=== PATIENT | male | born 1955 | race Caucasian/White ===

== ENCOUNTER 2019-12-02 08:20 | Emergency (ER) | payer BC, OTHER ==
[2019-12-02 17:21] LABS: SARS-CoV-2 MS2 Positive; SARS-CoV-2 N Gene Negative; SARS-CoV-2 S Gene Negative; SARS-CoV-2 orf1ab Negative
== END 2019-12-02 09:25 | disposition home or self-care (01) ==
LOC: ERS 08:20
DX: B34.9 Viral infection, unspecified (principal); Z20.828 Contact with and (suspected) exposure to other viral communicable diseases
CPT/HCPCS: 87635; 87804; 99283; U0003

== ENCOUNTER 2020-02-22 07:35 | Outpatient (CLI) | payer MEDICARE ==
--- NOTE | 2020-02-22 08:26 | ULT ---
ABDOMINAL ULTRASOUND HISTORY: Acute pancreatitis. FINDINGS: Liver: Mild increased echogenicity suggesting mild fatty infiltration. Gallbladder: No gallbladder calculi are visualized. There is no gallbladder wall thickening or perich olecystic fluid. Common duct: Common duct is normal in caliber measuring 0.3 cm in diameter. Pancreas: The limited visualized pancreas demonstrates a normal sonographic appearance. The tail and portion of the head of the pancreas are obscured by shadowing from bowel gas. No pancreatic or peripancreatic fluid collection is evident involving the visualized portions of the pancreas. IVC: Limited visualized IVC has a normal sonographic appearance. Aorta: Mild atherosclerotic plaque, the visualized normal aorta is normal in caliber. Portion of the mid abdominal aorta is obscured from shadowing by bowel gas. Spleen: Within normal limits. Kidneys: The right kidney demonstrates a normal sonographic appearance and measures 10 cm in length. The left kidney measures 11.2 cm in length. There is a anechoic structure seen in the inferior pole left kidney which is in the region of the renal sinus fat and may represent a parapelvic renal cyst m easuring 1.7 cm. IMPRESSION: 1. Mild fatty infiltration of the liver. 2. No gallbladder calculus is seen, and the common duct is normal in caliber. 3. The limited visualized portions of the pancreas demonstrate a normal sonographic appearance. 4. Inferior pole left renal cyst which may represent a parapelvic renal cyst.
== END 2020-02-22 07:36 | disposition home or self-care (01) ==
LOC: SCSULT 07:35
PROVIDERS: ATTEND Internal Medicine
DX: K85.90 Acute pancreatitis without necrosis or infection, unspecified (principal); K76.0 Fatty (change of) liver, not elsewhere classified; N28.1 Cyst of kidney, acquired
CPT/HCPCS: 93975

== ENCOUNTER 2020-07-10 10:47 | Outpatient (CLI) | payer MEDICARE ==
--- NOTE | 2020-07-10 11:17 | ULT ---
Sonogram abdomen complete HISTORY: Abnormal liver function tests. Renal mass. COMPARISON: 02/22/2020. FINDINGS: Multiple small echogenic foci with posterior shadowing are now present within the dependent portion of the gallbladder lumen. There is no gallbladder wall thickening or pericholecystic fluid. Common duct is 0.3 cm. Liver is diffusely echogenic without focal mass or intrahepatic biliary dilatation. A lobular parapelvic cyst at the midportion left kidney is now seen at 1.9 x 1.9 cm greatest diameter s. No hydronephrosis. The spleen, right kidney, and visualized portions of abdominal aorta, IVC, and pancreas are within no rmal limits. IMPRESSION : Cholelithiasis. No evidence of biliary obstruction. Hepato-steatosis. Left renal cyst.
== END 2020-07-10 10:48 | disposition home or self-care (01) ==
LOC: BICULT 10:47
PROVIDERS: ATTEND Internal Medicine
DX: K76.0 Fatty (change of) liver, not elsewhere classified (principal); N28.1 Cyst of kidney, acquired; K80.20 Calculus of gallbladder without cholecystitis without obstruction
CPT/HCPCS: 93975

== ENCOUNTER 2022-01-14 09:08 | Outpatient (CLI) | payer MEDICARE | END 2022-01-14 09:09 | disposition home or self-care (01) | LOC: BICULT 09:08 | PROVIDERS: ATTEND Physician Assistant Medical | DX: K80.20 Calculus of gallbladder without cholecystitis without obstruction (principal); K76.0 Fatty (change of) liver, not elsewhere classified | CPT/HCPCS: 76705 ==

== ENCOUNTER 2022-01-16 14:00 | Outpatient (CLI) | payer MEDICARE | END 2022-01-16 14:01 | disposition home or self-care (01) | LOC: LABBT 14:00 | PROVIDERS: ATTEND Internal Medicine Gastroenterology | DX: Z20.822 Contact with and (suspected) exposure to COVID-19 (principal) | CPT/HCPCS: 87811 ==

== ENCOUNTER 2022-01-21 10:24 | Day surgery (SDC) | payer MEDICARE ==
[2022-01-16 10:52] VITALS: BMI 25.1
[2022-01-21] MEDS ORDERED: Iopamidol 30 ML ONE (11:23)
[2022-01-21] MEDS ORDERED: Indomethacin 50 MG SUPP ONE (11:24)
[2022-01-21] MEDS ORDERED: fentaNYL Citrate/PF 100 MCG/2 ML SYRINGE ONE (11:55)
[2022-01-21] MEDS ORDERED: cefTRIAXone\\ROCEPHIN 1 GM VIAL ONE (12:13)
[2022-01-21] MEDS ORDERED: Sodium Chloride 0.9% 100 ML ONE (12:13)
[2022-01-21] MEDS ORDERED: Lidocaine 1% PF 5 ML VIAL ONE (12:16)
[2022-01-21] MEDS ORDERED: Dexamethasone 20 MG/5 ML VIAL ONE (12:16)
[2022-01-21] MEDS ORDERED: Ondansetron PF 4 MG/2 ML Vial ONE (12:16)
[2022-01-21] MEDS ORDERED: Succinylcholine 200 MG/10 ml SYRINGE FS ONE (12:16)
[2022-01-21] MEDS ORDERED: PROPOFOL 200 MG/20 ML VIAL ONE (12:16)
== END 2022-01-21 14:35 | disposition home or self-care (01) ==
LOC: SDC 10:24
PROVIDERS: ATTEND Internal Medicine Gastroenterology
PROC: 0DJ08ZZ Inspection of Upper Intestinal Tract, Via Natural or Artificial Opening Endoscopic (ICD-10-PCS; principal; 2022-01-21)
DX: K83.8 Other specified diseases of biliary tract (principal); K80.20 Calculus of gallbladder without cholecystitis without obstruction; Z79.899 Other long term (current) drug therapy
CPT/HCPCS: 74330; 76000; 93005; 93010; J0696; J1100; J2405; J2704; J3490; Q9967

== ENCOUNTER 2022-04-23 09:59 | Day surgery (SDC) | payer MEDICARE ==
[2022-04-22 15:29] VITALS: BMI 25.8
[2022-04-23] MEDS ORDERED: Indocyanine Green 25 MG/10 ML VIAL ONE (11:25)
[2022-04-23] MEDS ORDERED: fentaNYL Citrate/PF 100 MCG/2 ML SYRINGE ONE (11:56)
[2022-04-23] MEDS ORDERED: Bupivacaine/Epinephrine 0.25% 30 ML VIAL ONE (11:59)
[2022-04-23] MEDS ORDERED: CEFAZOLIN 2 GM VIAL ONE (12:05)
[2022-04-23] MEDS ORDERED: Sodium Chloride 0.9% 100 ML ONE (12:05)
[2022-04-23] MEDS ORDERED: Ondansetron PF 4 MG/2 ML Vial ONE (12:27)
[2022-04-23] MEDS ORDERED: Ketorolac Tromethamine 30 MG/ML VIAL ONE (12:27)
[2022-04-23] MEDS ORDERED: Succinylcholine 200 MG/10 ml SYRINGE FS ONE (12:27)
[2022-04-23] MEDS ORDERED: Dexamethasone 20 MG/5 ML VIAL ONE (12:27)
[2022-04-23] MEDS ORDERED: Lidocaine 1% MPF 2 ML VIAL ONE (12:27)
[2022-04-23] MEDS ORDERED: Rocuronium Bromide 10 MG/ML (10ML VIAL) ONE (12:27)
[2022-04-23] MEDS ORDERED: PROPOFOL 200 MG/20 ML VIAL ONE (12:27)
[2022-04-23] MEDS ORDERED: SUGAMMADEX SODIUM 200 MG/2 ML VIAL ONE (13:00)
[2022-04-23] MEDS ORDERED: Meperidine HCl/PF 25 MG/ML VIAL ONE (13:14)
[2022-04-23] MEDS ORDERED: Fentanyl 100 MCG/2 ML VIAL ONE (13:33)
== END 2022-04-23 14:45 | disposition home or self-care (01) ==
LOC: SDC 09:59
PROVIDERS: ATTEND Surgery
PROC: 0FT44ZZ Resection of Gallbladder, Percutaneous Endoscopic Approach (ICD-10-PCS; principal; 2022-04-23)
PROC: 8E0W4CZ Robotic Assisted Procedure of Trunk Region, Percutaneous Endoscopic Approach (ICD-10-PCS; 2022-04-23)
DX: K80.10 Calculus of gallbladder with chronic cholecystitis without obstruction (principal); N52.9 Male erectile dysfunction, unspecified; I10 Essential (primary) hypertension; Z79.899 Other long term (current) drug therapy
CPT/HCPCS: 47562; C1776; 88304; J0690; J1100; J1885; J2175; J2405; J2704; J3010; J3490